=== PATIENT | male | born 1945 | race African-American/Black ===

== ENCOUNTER 2024-10-20 14:00 | Emergency (ER) | payer MEDICARE, MEDICAID ==
[~2024-10-20] VITALS: Ht 170.2 cm; Wt 56.0 kg
[2024-10-20 14:12] VITALS: BP 111/55; PULSE 85; RESP 16; TEMP 98.3; O2SAT 100; O2SAT 98
[2024-10-20] MEDS ORDERED: HYDR-4001 MT (17:32)
== END 2024-10-20 18:03 | disposition home or self-care (01) ==
LOC: ER 14:00
DX: M25.551 Pain in right hip (principal)
CPT/HCPCS: 99282